=== PATIENT | female | born 1985 | race Two or more races ===

== ENCOUNTER 2024-08-11 07:54 | Emergency (ER) | payer MEDICAID, SELFPAY ==
[2024-08-11 07:55] VITALS: BMI 35.2
[2024-08-11 08:06] VITALS: BP 160/97; PULSE 81; RESP 19; TEMP 37.3; O2SAT 99
--- NOTE | 2024-08-11 08:11 | EDNOTE_ITS ---
ED Wound/Laceration-RME/HPI General Chief Complaint: Wound/Laceration Stated Complaint: INCISION OPENED-HERNIA REPAIR Time Seen by Provider: 08/11/24 08:01 Arrival date/time: 08/11/24 07:54 38-year-old female presents the emergency department today stating that she had a hernia repair 2 months ago patient reports that last night she realized that there was some drainage from the site therefore she came in for further evaluation Limitations: no limitations Related Data Home Medications ?Medication ?Instructions ?Recorded ?Confirmed metformin 1,000 mg tablet 1,000 mg PO BID #0 tabs 08/08/16 06/14/24 (Glucophage) semaglutide 1 mg/dose (4 mg/3 mL) 1 mg subcut QWEEK 06/12/24 06/12/24 subcutaneous pen injector (Ozempic) terbinafine HCl 250 mg tablet 250 mg PO QDAY 06/12/24 06/14/24 Previous Rx's ?Medication ?Instructions ?Recorded docusate sodium 100 mg capsule 100 mg PO BID #60 caps 06/14/24 (Colace) hydrocodone 5 mg-acetaminophen 325 1 tab PO Q6H PRN pain (scale score 06/14/24 mg tablet 7-10) #20 tabs ibuprofen 600 mg tablet 600 mg PO Q8H PRN pain (scale 06/14/24 score 4-6) #15 tabs cephalexin 500 mg capsule 500 mg PO BID 7 days #14 caps 08/11/24 Allergies Allergy/AdvReac Type Severity Reaction Status Date / Time No Known Allergies Allergy Verified 08/11/24 07:57 Review of Systems Review of Systems Systems Reviewed: All systems reviewed, normal except as documented Constitutional Constitutional: Reports system reviewed and no additional complaints, except as documented, Denies fever(s) and Denies headache(s) Eyes Eyes: Reports system reviewed and no additional complaints, except as documented and Denies blurry vision ENT Ears, Nose, Mouth, and Throat: Reports system reviewed and no additional complaints, except as documented, Denies headache(s), Denies nasal congestion and Denies nasal discharge Cardiovascular Cardiovascular: Reports system reviewed and no additional complaints, except as documented, Denies chest pain and Denies dyspnea Respiratory Respiratory: Reports system reviewed and no additional complaints, except as documented, Denies chest congestion, Denies cough and Denies dyspnea Gastrointestinal Gastrointestinal: Reports system reviewed and no additional complaints, except as documented, Denies abdominal pain, Denies nausea and Denies vomiting Integumentary/Breasts Skin/Breast: Reports system reviewed and no additional complaints, except as documented and Denies rash Neurologic Neurologic: Reports system reviewed and no additional complaints, except as documented, Reports as per HPI and Denies headache(s) Past Medical History Past Medical History NEUROLOGIC: Negative Neurological Disorders ED Exam General Limitations: Present no limitations General appearance: Present alert and in no apparent distress Head Head exam: Present atraumatic, normocephalic and normal inspection Eye Eye exam: Present normal appearance, PERRL and EOMI; Absent conjunctival injection ENT ENT exam: Present normal exam, normal oropharynx and mucous membranes moist Neck Neck exam: Present normal inspection, full ROM and trachea midline Chest Chest inspection: Present normal inspection and symmetric chest wall rise Respiratory Respiratory exam: Present normal lung sounds bilaterally; Absent respiratory distress Cardiovascular Cardiovascular exam: Present regular rate, normal rhythm and normal heart sounds Abdominal Exam Abdominal exam: Present soft and normal bowel sounds; Absent distention, tenderness, guarding, rebound, rigidity or tenderness at McBurney's Point Abdominal tenderness: Absent RUQ or RLQ Extremities Exam Extremities exam: Present normal inspection and full ROM Back Exam Back exam: Present normal inspection and full ROM Neurological Exam Neurological exam: Present alert, oriented X3 and CN II-XII intact Psychiatric Psychiatric exam: Present normal affect and normal mood Skin Skin exam: Present warm, dry, intact and normal color Course Quality Measures none Vital Signs Vital signs: Vital Signs Temperature 99.2 F 08/11/24 08:06 Pulse Rate 81 08/11/24 08:06 Respiratory Rate 19 08/11/24 08:06 Blood Pressure 160/97 H 08/11/24 08:06 Pulse Oximetry (%) 99 08/11/24 08:06 Oxygen Delivery Method Room Air 08/11/24 08:06 O2 saturation 99% room air within normal limit Wound / Laceration MDM Narrative MDM Narrative:: 38-year-old female presents the emergency department today stating that she had a hernia repair 2 months ago patient reports that last night she realized that there was some drainage from the site therefore she came in for further evaluation On exam patient well-appearing patient does not appear ill or toxic patient has an incision lower abdomen no active drainage soft nontender no surrounding erythema I do not believe patient has an infection at this time patient appears well reports no fever nausea or vomiting and abdomen is soft and nontender Patient given a course of antibiotics to prevent infection Patient discharged home in no distress to follow-up with primary care doctor in the next 24 to 48 hours and for any worsening symptoms to return to the ER immediately Patient data External records reviewed:: [facility] previous records Clinical information provided by:: patient Social determinants that could affect healthcare access:: none Patient has the following chronic illnesses:: See history How is presenting disease/condition affected by chronic disease/condition?: caused by Evaluation data The following diagnostics were reviewed and interpreted by me:: other (specify) (N/A) Lab and/or radiology exams considered but not ordered:: Considered and not ordered Interpretation Summary: N/A Medications / Prescriptions Medications or Prescriptions considered but not ordered:: Given Medication administrations:: Given Consultations Consultation(s) initiated? (list below): No Diagnosis Wound Differential Diagnosis: laceration, abrasion and avulsion of skin Most likely diagnosis given after review of the tests above:: Wound dehiscence Admission Indicated Admission indicated?: not indicated Admission Request Was there a request for admission?: No Disposition Plan Disposition Plan: Discharge Discharge Attestation Discharge Attestation: The patient and all family members were given an opportunity to ask questions and understood the discharge instructions. Discharge instructions specifically effects, indications for sooner follow up or return to the emergency department, and the expected course of current diagnosis. Patient condition: Stable Discharge Plan Plan Patient Disposition: HOME (Self Care) Disposition Comment: Stable Prescriptions/Referrals Prescriptions/Med Rec: New cephalexin 500 mg capsule 500 mg PO BID 7 Days Qty: 14 0RF No Action metformin [Glucophage] 1,000 MG tablet 1,000 mg PO BID Qty: 0 terbinafine HCl 250 mg Tablet 250 mg PO QDAY Ozempic 1 mg/dose (4 mg/3 mL) pen injector 1 mg SUBCUT QWEEK Patient Comments: INJECT 1 MG UNDER THE SKIN ONCE WEEKLY ON THE SAME DAY OF EACH WEEK IN THE ABDOMEN , THIGHS , OR UPPER ARM ROTATING docusate sodium [Colace] 100 mg capsule 100 mg PO BID Qty: 60 0RF ibuprofen 600 mg tablet 600 mg PO Q8H PRN (Reason: pain (scale score 4-6)) Qty: 15 0RF hydrocodone-acetaminophen 5-325 mg tablet 1 tab PO Q6H MDD 4 PRN (Reason: pain (scale score 7-10)) Qty: 20 0RF Problem List Clinical Impression: Dehiscence of wound Patient/Caregiver Discharge Instructions Additional Instructions: Please follow up with your primary care doctor in the next 24-48hrs for any worsening symptoms return here immediately Print Language: [place] Stand Alone Forms: Kat Award Info., Patient Portal Info Letter PA/[employer] Supervising Physician PA/[employer] Supervising Physician: Dr. gonzalez
== END 2024-08-11 09:16 | disposition home or self-care (01) ==
LOC: SERX 08:17
PROVIDERS: Emergency Provider Emergency Medicine; PCP Family Medicine
DX: T81.31XA Disruption of external operation (surgical) wound, not elsewhere classified, initial encounter (principal); Y83.8 Other surgical procedures as the cause of abnormal reaction of the patient, or of later complication, without mention of misadventure at the time of the procedure
CPT/HCPCS: 99281

== ENCOUNTER 2024-09-22 08:43 | Emergency (ER) | payer MEDICAID, SELFPAY ==
[2024-09-22 08:44] VITALS: BMI 34.4
[2024-09-22 08:49] VITALS: BP 144/89; PULSE 84; RESP 18; TEMP 36.8; O2SAT 97; BMI 34.4
--- NOTE | 2024-09-22 08:57 | XR_ITS ---
Examination: PA lateral chest 2 views Technique: Upright PA lateral chest 2 views Exam date and time: September 22, 2024 0934 hrs. Comparison April 12, 2019 Indications: Coughing beginning 3 weeks ago. Findings: No significant cardiac enlargement Ectatic thoracic aorta. No pneumonia or pulmonary edema Impression: No pneumonia or pulmonary edema
--- NOTE | 2024-09-22 08:58 | EDNOTE_ITS ---
Upper Respiratory Inf. RME/HPI General Chief Complaint: Flu Like Symptoms Stated Complaint: COLD SYMPTOMS X3 WKS Time Seen by Provider: 09/22/24 08:53 Arrival date/time: 09/22/24 08:43 39-year-old female presents to emergency department today complains of URI symptoms ongoing for the last 3 weeks patient reports runny nose, congestion, cough, body aches ear pain and sore throat Limitations: no limitations Related Data Home Medications ?Medication ?Instructions ?Recorded ?Confirmed metformin 1,000 mg tablet 1,000 mg PO BID #0 tabs 07/22/06/14/24 (Glucophage) semaglutide 1 mg/dose (4 mg/3 mL) 1 mg subcut QWEEK 06/12/24 subcutaneous pen injector (Ozempic) terbinafine HCl 250 mg tablet 250 mg PO QDAY 06/12/24 06/14/24 Previous Rx's ?Medication ?Instructions ?Recorded docusate sodium 100 mg capsule 100 mg PO BID #60 caps 06/14/24 (Colace) hydrocodone 5 mg-acetaminophen 325 1 tab PO Q6H PRN pa in (scale score 06/14/24 mg tablet 7-10) #20 tabs ibuprofen 600 mg tablet 600 mg PO Q8H PRN pain (scal e 06/14/24 score 4-6) #15 tabs amoxicillin 875 mg-potassium 1 tab PO BID 7 days #14 t abs 09/22/24 clavulanate 125 mg tablet ibuprofen 800 mg tablet 800 mg PO TID PRN pain #30 t abs 09/22/24 Allergies Allergy/AdvReac Type Severity Reaction Status Date / Time No Known Allergies Allergy Verified 09/22/24 08:46 Review of Systems Review of Systems Systems Reviewed: All systems reviewed, normal except as documented Constitutional Constitutional: Reports system reviewed and no additional complaints, except as documented, Reports body ache(s), Reports chills, Denies fever(s) and Reports headache(s) Eyes Eyes: Reports system reviewed and no additional complaints, except as documented and Denies blurry vision ENT Ears, Nose, Mouth, and Throat: Reports system reviewed and no additional complaints, except as documented, Reports headache(s), Reports nasal congestion and Reports nasal discharge Cardiovascular Cardiovascular: Reports system reviewed and no additional complaints, except as documented, Denies chest pain and Denies dyspnea Respiratory Respiratory: Reports system reviewed and no additional complaints, except as documented, Reports chest congestion, Reports cough and Denies dyspnea Gastrointestinal Gastrointestinal: Reports system reviewed and no additional complaints, except as documented and Denies abdominal pain Integumentary/Breasts Skin/Breast: Reports system reviewed and no additional complaints, except as documented and Denies rash Neurologic Neurologic: Reports system reviewed and no additional complaints, except as documented, Reports as per HPI and Reports headache(s) Past Medical History Past Medical History NEUROLOGIC: Negative Neurological Disorders or Seizures CARDIAC: Positive Cardiac Disorders and Hypertension (Run out of losartan 4 weeks ago); Negative Congestive Heart Failure RESPIRATORY: Negative Chronic Obstructive Pulmonary Disease (COPD) GASTROINTESTINAL: Positive Gastrointestinal Disorders and Obesity; Negative Hepatitis GENITOURINARY: Negative Genitourinary Disorders or Renal Disease REPRODUCTIVE: Positive Previous Pregnancies (x3) MUSCULOSKELETAL: Negative Musculoskeletal Disorders ENDOCRINE: Positive Endocrine Disorders and Diabetes Mellitus Type 2; Negative Diabetes Mellitus Type 1 HEMATOLOGIC: Negative Blood Disorders OTHER HISTORY: Positive Anesthesia Reactions (severe nausea vomiting) and Chic gerald Pox; Negative Hospitalization, Autoimmune Disease, Shingles, Blood Transfusions, Blood Transfusion Reaction or Cancer Family History FAMILY HISTORY: Positive Family Cardiac Disorders and Family Surgery; Negative Family Psychiatric Problems, Family Respiratory Disorders, Family Gastrointestinal Problems, Family Cancer or Family Anesthesia Reaction Surgical History SURGICAL: Positive Tubal Ligation and Section (x2) Social History SMOKING STATUS: Never smoker ED Exam General Limitations: Present no limitations General appearance: Present alert and in no apparent distress Head Head exam: Present atraumatic, normocephalic and normal inspection Eye Eye exam: Present normal appearance, PERRL and EOMI; Absent conjunctival injection ENT ENT exam: Present normal exam, normal oropharynx and mucous membranes moist Neck Neck exam: Present normal inspection, full ROM and trachea midline Chest Chest inspection: Present normal inspection and symmetric chest wall rise Respiratory Respiratory exam: Present normal lung sounds bilaterally; Absent respiratory distress, wheezes, stridor or accessory muscle use Cardiovascular Cardiovascular exam: Present regular rate, normal rhythm and normal heart sounds Abdominal Exam Abdominal exam: Present soft and normal bowel sounds; Absent distention, tenderness, guarding, rebound or rigidity Extremities Exam Extremities exam: Present normal inspection and full ROM Back Exam Back exam: Present normal inspection and full ROM Neurological Exam Neurological exam: Present alert, oriented X3 and CN II-XII intact Psychiatric Psychiatric exam: Present normal affect and normal mood Skin Skin exam: Present warm, dry, intact and normal color Course Quality Measures none Orders Category Date Time Status Bedside COVID-19 Antigen Test NOW Care 09/22/24 08:57 Completed Bedside Influenza A&B Antigen Test NOW Care 09/22/24 08:57 Completed XR chest 2V Stat Exams 09/22/24 08:57 Completed CBC Stat Lab 09/22/24 09:50 Completed CMP [Comprehensive Metabolic Panel] Stat Lab 09/22/24 09:50 Completed Strep A Rapid Stat Lab 09/22/24 09:15 Completed Vital Signs Vital signs: Vital Signs Temperature 98.2 F 09/22/24 08:49 Pulse Rate 84 09/22/24 08:49 Respiratory Rate 18 09/22/24 08:49 Blood Pressure 144/89 H 09/22/24 08:49 Pulse Oximetry (%) 97 09/22/24 08:49 Oxygen Delivery Method Room Air 09/22/24 08:49 O2 saturation 97% room air within normal limits Upper Respiratory Infection MDM Narrative MDM Narrative:: 39-year-old female presents to emergency department today complains of URI symptoms ongoing for the last 3 weeks patient reports runny nose, congestion, cough, body aches ear pain and sore throat On exam patient well-appearing patient does not appear ill or toxic patient hemodynamically stable Lab work and chest x-ray obtained No acute emergent findings noted Symptoms consistent with URI Patient discharged home in no distress to follow-up with primary care doctor in the next 24 to 48 hours and for any worsening symptoms to return to the ER immediately Patient data External records reviewed:: [facility] previous records Clinical information provided by:: patient Social determinants that could affect healthcare access:: none Patient has the following chronic illnesses:: See history How is presenting disease/condition affected by chronic disease/condition?: exacerbated by Evaluation data The following diagnostics were reviewed and interpreted by me:: lab results and radiology exam(s) Lab and/or radiology exams considered but not ordered:: Labs radiology obtained Interpretation Summary: Reviewed by me Medications / Prescriptions Medications or Prescriptions considered but not ordered:: Given Medication administrations:: Given Consultations Consultation(s) initiated? (list below): No Diagnosis Upper Respiratory Differential Diagnosis: upper respiratory infection, sinusitis, viral infection and bronchitis Most likely diagnosis given after review of the tests above:: URI Admission Indicated Admission indicated?: not indicated Admission Request Was there a request for admission?: No Disposition Plan Disposition Plan: Discharge Discharge Attestation Discharge Attestation: The patient and all family members were given an opportunity to ask questions and understood the discharge instructions. Discharge instructions specifically effects, indications for sooner follow up or return to the emergency department, and the expected course of current diagnosis. Patient condition: Stable Discharge Plan Plan Patient Disposition: HOME (Self Care) Disposition Comment: Stable Prescriptions/Referrals Prescriptions/Med Rec: New ibuprofen 800 mg tablet 800 mg PO TID PRN (Reason: pain) Qty: 30 0RF amoxicillin-pot clavulanate 875-125 mg tablet 1 tab PO BID 7 Days Qty: 14 0RF No Action metformin [Glucophage] 1,000 MG tablet 1,000 mg PO BID Qty: 0 terbinafine HCl 250 mg Tablet 250 mg PO QDAY Ozempic 1 mg/dose (4 mg/3 mL) pen injector 1 mg SUBCUT QWEEK Patient Comments: INJECT 1 MG UNDER THE SKIN ONCE WEEKLY ON THE SAME DAY OF EACH WEEK IN THE ABDOMEN , THIGHS , OR UPPER ARM ROTATING docusate sodium [Colace] 100 mg capsule 100 mg PO BID Qty: 60 0RF ibuprofen 600 mg tablet 600 mg PO Q8H PRN (Reason: pain (scale score 4-6)) Qty: 15 0RF hydrocodone-acetaminophen 5-325 mg tablet 1 tab PO Q6H MDD 4 PRN (Reason: pain (scale score 7-10)) Qty: 20 0RF Referrals: Emilia Frias MD [Primary Care Provider] - 09/26/24 Problem List Clinical Impression: Acute sinusitis Patient/Caregiver Discharge Instructions Education Materials: Causes of Sinusitis Additional Instructions: Please follow up with your primary care doctor in the next 24-48hrs for any wo rsening symptoms return here immediately Print Language: Citizen Of [place] Stand Alone Forms: Kat Award Info., Work/School Release, Patient Portal Info Letter NEIL/MATTHEW Supervising Physician NEIL/MATTHEW Supervising Physician: Dr Tirado
[2024-09-22 09:59] LABS: Strep A Rapid Negative (Negative)
[2024-09-22 10:03] LABS: Basophils # (Auto) 0.1 Thou/mm3 (0.0-0.2); Basophils % (Auto) 1 % (0-2.5); Eosinophils # (Auto) 0.4 Thou/mm3 (0.0-0.5); Eosinophils % (Auto) 3 % (0-10); Hematocrit 41.3 % (36.0-46.0); Hemoglobin 13.6 g/dL (12.0-16.0); Immature Granulocytes % (Auto) 1 % (0-0); Immature Granulocytes Auto 0.07 Thou/mm3 (0.00-0.00); Lymphocytes # (Auto) 1.7 Thou/mm3 (1.0-4.8); Lymphocytes % (Auto) 16 % (10-50); Mean Corpuscular HGB Conc 32.9 g/dl (31.0-37.0); Mean Corpuscular Hemoglobin 24.5 pg (25.0-35.0); Mean Corpuscular Volume 75 fL (80-100); Monocytes # (Auto) 0.5 Thou/mm3 (0.0-0.8); Monocytes % (Auto) 5 % (0-12); Neutrophils # (Auto) 8.3 Thou/mm3 (1.8-7.7); Neutrophils % (Auto) 75 % (37-80); Nucleated Red Blood Cell % 0 /100 WBC (0); Platelet Count 371 Thou/mm3 (140-440); RDW Standard Deviation 39.5 fL (36.4-46.3); Red Blood Count 5.54 Miln/mm3 (4.00-5.20); White Blood Count 11.1 Thou/mm3 (3.6-11.0)
[2024-09-22 10:27] LABS: Alanine Aminotransferase 15 U/L (10-49); Albumin, Serum 4.1 gm/dL (3.5-5.0); Albumin/Globulin Ratio 1.5 (1.2-2.2); Alkaline Phosphatase 97 U/L (46-116); Anion Gap 7 (7-16); Aspartate Amino Transferase 10 U/L (0-34); BUN/Creatinine Ratio 16 Ratio (12-20); Bilirubin,Total 0.5 mg/dL (0.3-1.2); Blood Urea Nitrogen 11 mg/dL (9-23); Chloride 102 mMol/L (98-107); Creatinine (Component) 0.7 mg/dL (0.6-1.3); Estimated Creatinine Clearance 128.4 mL/min (>60); Globulin 2.8 gm/dL (2.3-3.5); Glucose 305 mg/dL (74-106); Osmolality,Calculated 282 (275-295); Potassium 4.4 mMol/L (3.4-5.1); Sodium 136 mMol/L (136-145); Total Protein 6.9 gm/dL (5.7-8.2); eGFR > 60 See Note
== END 2024-09-22 10:56 | disposition home or self-care (01) ==
PROVIDERS: Nurse Practitioner Primary Care; Emergency Provider Emergency Medicine; PCP Family Medicine
DX: J01.90 Acute sinusitis, unspecified (principal)
CPT/HCPCS: 36415; 71046; 80053; 85025; 87400; 87651; 87811; 99283

== ENCOUNTER 2025-05-07 02:23 | Emergency (ER) | payer MEDICAID, SELFPAY ==
--- NOTE | 2025-05-07 02:25 | EKG_ITS ---
[facility] Test Date: 2025-05-07 Pat Name: ZURI DOW Department: Room: - Gender: Female [employer]: : 1985 Requested By: ED Temporary Provider Order Number: [id number] Reading MD: ED Temporary Provider Measurements Intervals [place] Rate: 84 P: 28 HI: 158 QRS: 13 QRSD: 115 T: 33 QT: 379 QTc: 449 Interpretive Statements SINUS RHYTHM MODERATE INTRAVENTRICULAR CONDUCTION DELAY [110+ ms QRS DURATION] NONSPECIFIC T-WAVE ABNORMALITY Compared to ECG 06/12/2024 09:06:39 Intraventricular conduction delay now present T-wave abnormality now present /[id number]/[id number]
[2025-05-07 02:26] VITALS: PULSE 88; O2SAT 98
[2025-05-07 02:37] VITALS: BMI 35.2
[2025-05-07 02:47] VITALS: BP 148/89; PULSE 88; RESP 15; TEMP 37; O2SAT 96
--- NOTE | 2025-05-07 02:53 | PD.EDCHEST ---
ED Chest Pain RME/HPI General Chief Complaint: Chest Pain Stated Complaint: CHEST TIGHTNESS Time Seen by Provider: 05/07/25 02:44 Arrival date/time: 05/07/25 02:23 RME / HPI RME / HPI narrative: DR. ADORNO MAIN ED EVALUATION: Patient presents with onset left parasternal chest pain pressure-like sensation x approximately 1 AM of intermittent nature with mild SOB and without pleuritic or exertional component. No nausea, vomiting, fever, or diaphoresis. Reports lightheadedness without near-syncopal episodes. Paramedics administered topical and sublingual Nitro and oral ASA with overall relief en route. Cardiac risk-factor: positive HTN and DM, negative for cholesterol, family history of heart disease. PE: negative for prolonged travel, recent surgery, family or personal hx of HRT or tobacco use. PMH: Positive HTN, DM. Social: nondrinker, nonsmoker, no illicit drug abuse. SH: Noncontributory. Related Data Home Medications ?Medication ?Instructions ?Recorded ?Confirmed metformin 1,000 mg tablet 1,000 mg PO BID #0 tabs 08/08/16 06/14/24 (Glucophage) semaglutide 1 mg/dose (4 mg/3 mL) 1 mg subcut QWEEK 06/12/24 06/12/24 subcutaneous pen injector (Ozempic) terbinafine HCl 250 mg tablet 250 mg PO QDAY 06/12/24 06/14/24 Previous Rx's ?Medication ?Instructions ?Recorded docusate sodium 100 mg capsule 100 mg PO BID #60 caps 06/14/24 (Colace) hydrocodone 5 mg-acetaminophen 325 1 tab PO Q6H PRN pain (scale score 06/14/24 mg tablet 7-10) #20 tabs ibuprofen 600 mg tablet 600 mg PO Q8H PRN pain (scale 06/14/24 score 4-6) #15 tabs ibuprofen 800 mg tablet 800 mg PO TID PRN pain #30 tabs 09/22/24 aspirin 81 mg tablet,delayed 81 mg PO QDAY #30 tabs 05/07/25 release (Ecotrin Low Strength) nitroglycerin 0.4 mg sublingual 0.4 mg buccal [id number] PRN 05/07/25 tablet (Nitrostat) sustained chest pain #25 tabs Allergies Allergy/AdvReac Type Severity Reaction Status Date / Time No Known Allergies Allergy Verified 09/22/24 08:46 Review of Systems Review of Systems Systems Reviewed: All systems reviewed, normal except as documented Past Medical History Past Medical History CARDIAC: Positive Cardiac Disorders and Hypertension GASTROINTESTINAL: Positive Gastrointestinal Disorders and Obesity REPRODUCTIVE: Positive Previous Pregnancies ENDOCRINE: Positive Endocrine Disorders and Diabetes Mellitus Type 2 OTHER HISTORY: Positive Anesthesia Reactions and Chicken Pox Family History FAMILY HISTORY: Positive Family Cardiac Disorders and Family Surgery Surgical History SURGICAL: Positive Tubal Ligation and Section ED Exam Narrative Physical exam: GEN. APPEARANCE: The patient is alert awake oriented X-3 in no distress, lying down comfortably, does not look ill/toxic. Patient has good eye contact. Patient is cooperative. VITALS: All vitals were reviewed and the pulse ox is 95% on room air which is normal according to my interpretation. HEENT: Normocephalic, atraumatic. Pupils are equal and reactive. Oral mucosa is moist. Patent Nares NECK: Supple, nontender, no thyromegaly, no meningismus, no JVD, no step offs CHEST: Symmetrical, atraumatic, and with equal expansion , Chest wall with mild tenderness to palpation to right parasternal region, no step off or crepitus. Patient placed on vehicle monitor technician. CARDIOVASCULAR: Heart regular rhythm no murmur or gallop rub or extra beats. LUNGS: Clear to auscultation bilaterally with symmetrical chest rise. No laboring tachypnea or wheezing. No intercostal subcostal retraction. No rales and no rhonchi. ABDOMEN: Soft, flat, nontender to palpation, no guarding or rebound tenderness. There are no abnormal masses palpated. Active and normal bowel sounds. EXTREMITIES: Nontender. No edema. No cyanosis. Patient is able to move all 4 extremities well, with full ROM and good CSM. SKIN: Warm and dry, no jaundice or rashes noted. MUSCULOSKELETAL: No lubar or midline bony tenderness. There is no CVA tenderness. No paraspinal muscle spasm or tenderness. NEURO: Patient is BALLARD x 4, Cranial nerves II through XII grossly intact. There is no focal neurologic deficits noted. GCS is 15, PNS and [employer]ANT TECHNICIAN appear grossly intact. PSYCHIATRIC: Patient is in normal mood and affect, cooperative, no SI or HI or hallucinations. Course Course Course Narrative: CXR was ordered for determining the etiology of shortness of breath. Quality Measures none Orders Category Date Time Status Dice Spotter STAT Care 05/07/25 02:57 Active Continuous Pulse Oximetry ONCE Care 05/07/25 02:57 Completed EKG (ED ONLY) *Do not use* NOW Care 05/07/25 02:25 Completed EKG (ED ONLY) *Do not use* NOW Care 05/07/25 02:57 Completed EKG (ED ONLY) *Do not use* NOW Care 05/07/25 05:12 Active EKG (ED Only) Stat Exams 05/07/25 02:25 Draft EKG (ED Only) Stat Exams 05/07/25 02:57 Draft EKG (ED Only) Stat Exams 05/07/25 05:12 Ordered XR chest 1V portable Stat Exams 05/07/25 02:57 Taken B-Type Natriuretic Peptide Stat Lab 05/07/25 03:19 Completed CBC Stat Lab 05/07/25 03:19 Completed Comprehensive Metabolic Panel Stat Lab 05/07/25 03:19 Completed HCG Qualitative,Urine Stat Lab 05/07/25 03:25 Completed HCG Titer if Positive Stat Lab 05/07/25 03:19 Completed Magnesium Stat Lab 05/07/25 03:19 Completed Troponin I Stat Lab 05/07/25 03:19 Completed Troponin I Stat Lab 05/07/25 04:51 Ordered Morphine* Inj Med 05/07/25 02:59 Discontinued 4 mg IVP X1 ONE Ondansetron Inj [Zofran Inj] Med 05/07/25 02:57 Active 4 mg IVP Q1HR PRN Oxygen Delivery NOW RT 05/07/25 02:57 Active Vital Signs Vital signs: Vital Signs Temperature 98.6 F 05/07/25 02:47 Pulse Rate 88 05/07/25 02:47 Respiratory Rate 15 05/07/25 02:47 Blood Pressure 148/89 H 05/07/25 02:47 Pulse Oximetry (%) 96 05/07/25 02:47 Oxygen Delivery Method Room Air 05/07/25 02:47 Chest Pain MDM Narrative MDM Narrative:: Scribe Attestation: IMary Ellen, am scribing for and in the presence of Dr. Adonro. Provider Notation: Although this document has been carefully reviewed, there may still be some phonetic and other typographical errors. These errors are purely grammatical due to imperfections in the software program and should not be construed in any way to compromise the substance of the patient's medical care during this visit. Patient presents with onset left parasternal chest pain pressure-like sensation x approximately 1 AM of intermittent nature with mild SOB and without pleuritic or exertional component. No nausea, vomiting, fever, or diaphoresis. Please see PE findings. Laboratory markers including CBC and serum chemistries were essentially unremarkable. Initial Troponin I was undetected and UA without evidence of infection. Patient placed on vehicle monitor technician and underwent basic cardiac workup. EKG and cardiac enzymes without signs of infarction, ischemia, or carditis. Low-dose IV narcotic analgesics and anti-emetics after receiving Nitroglycerin in the field with improvement. Currently pending F/U cardiac enzymes and EKG. And if unremarkable, will discharge to home on daily baby aspirin, SL NTG for sustain chest pain and outpatient referral for stress test. Patient data External records reviewed:: [facility] previous records (Reviewed prior ED records from 09/22/24. Patient was seen for Acute sinusitis.) and EMS form Clinical information provided by:: patient and EMS Social determinants that could affect healthcare access:: none Patient has the following chronic illnesses:: HTN, DM How is presenting disease/condition affected by chronic disease/condition?: exacerbated by Evaluation data The following diagnostics were reviewed and interpreted by me:: EKG tracing(s) (EKG at 0239 shows normal sinus rhythm at 84, no acute ST segment changes, no ventricular ectopy, axis leftward, ? LVH by voltage criteria, per my interpretation.) Lab and/or radiology exams considered but not ordered:: None Interpretation Summary: RADIOLOGY Chest X-Ray: Pending official radiology report. Medications / Prescriptions Medications or Prescriptions considered but not ordered:: None Medication administrations:: Medication Administration History Ondansetron HCl (Ondansetron Inj 2 Mg/Ml Inj 2 Ml) 4 mg IVP Q1HR PRN PRN Reason: PERSISTENT NAUSEA OR VOMITING Discontinued Medications Morphine Sulfate (Morphine Sulf Inj 4 Mg/Ml Vial) 4 mg IVP X1 ONE Stop: 05/07/25 03:00 See above if any Consultations Consultation(s) initiated? (list below): No Diagnosis Chest Pain Differential Diagnosis: stable angina, unstable angina pectoris, atypical chest pain, st elevation myocardial infarction, costochondritis, chest pain and biliary colic Most likely diagnosis given after review of the tests above:: Non-specific chest pain. Admission Indicated Admission indicated?: not indicated Explain why admission is indicated or not indicated:: Patient does not meet admission criteria. Admission Request Was there a request for admission?: No Disposition Plan Disposition Plan: Discharge Discharge Attestation Discharge Attestation: The patient and all family members were given an opportunity to ask questions and understood the discharge instructions. Discharge instructions specifically effects, indications for sooner follow up or return to the emergency department, and the expected course of current diagnosis. Patient condition: Stable Discharge Plan Plan Patient Disposition: HOME (Self Care) Prescriptions/Referrals Prescriptions/Med Rec: New aspirin [Ecotrin Low Strength] 81 mg tablet,delayed release (DR/EC) 81 mg PO QDAY Qty: 30 0RF nitroglycerin [Nitrostat] 0.4 mg tablet, sublingual 0.4 mg buccal [id number] PRN (Reason: sustained chest pain) Qty: 25 0RF No Action metformin [Glucophage] 1,000 MG tablet 1,000 mg PO BID Qty: 0 terbinafine HCl 250 mg Tablet 250 mg PO QDAY Ozempic 1 mg/dose (4 mg/3 mL) pen injector 1 mg SUBCUT QWEEK Patient Comments: INJECT 1 MG UNDER THE SKIN ONCE WEEKLY ON THE SAME DAY OF EACH WEEK IN THE ABDOMEN , THIGHS , OR UPPER ARM ROTATING docusate sodium [Colace] 100 mg capsule 100 mg PO BID Qty: 60 0RF ibuprofen 600 mg tablet 600 mg PO Q8H PRN (Reason: pain (scale score 4-6)) Qty: 15 0RF hydrocodone-acetaminophen 5-325 mg tablet 1 tab PO Q6H MDD 4 PRN (Reason: pain (scale score 7-10)) Qty: 20 0RF ibuprofen 800 mg tablet 800 mg PO TID PRN (Reason: pain) Qty: 30 0RF Referrals: No Primary/Family,Physician [Primary Care Provider] - In 1 week Problem List Clinical Impression: Nonspecific chest pain Patient/Caregiver Discharge Instructions Discharge Activity: activity as tolerated Diet Instructions: Low-salt diet Education Materials: ED Chest Pain, Uncertain Cause Additional Instructions: Daily aspirin and sublingual nitro for sustained chest pain. Patient instructed to follow-up with her primary care doctor for arrangements for outpatient stress testing. Precaution instructions issued. Print Language: Mongolian Stand Alone Forms: Kat Award Info., Patient Portal Info Letter
--- NOTE | 2025-05-07 02:57 | EKG_ITS ---
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
--- NOTE | 2025-05-07 02:57 | XR_ITS ---
Examination: AP chest single view Technique one AP portable upright chest single view Date and time: May 07, 2025, 0320 hrs., Comparison September 22, 2024 Indications: Chest pain today. Findings: Normal heart size The upper mediastinum is prominent No pulmonary edema The osseous structures are intact Impression: Abnormal widening the mediastinum Recommend CT chest post intravenous contrast follow-up to exclude mediastinal lymphadenopathy
[2025-05-07 03:14] VITALS: PULSE 88
[2025-05-07 03:15] VITALS: RESP 98
[2025-05-07 03:37] LABS: Basophils # (Auto) 0.1 Thou/mm3 (0.0-0.2); Basophils % (Auto) 1 % (0-2.5); Eosinophils # (Auto) 0.5 Thou/mm3 (0.0-0.5); Eosinophils % (Auto) 5 % (0-10); Hematocrit 36.0 % (36.0-46.0); Hemoglobin 11.9 g/dL (12.0-16.0); Immature Granulocytes Auto 0.03 Thou/mm3 (0.00-0.00); Lymphocytes # (Auto) 1.8 Thou/mm3 (1.0-4.8); Lymphocytes % (Auto) 20 % (10-50); Mean Corpuscular HGB Conc 33.1 g/dl (31.0-37.0); Mean Corpuscular Hemoglobin 25.7 pg (25.0-35.0); Mean Corpuscular Volume 78 fL (80-100); Monocytes # (Auto) 0.6 Thou/mm3 (0.0-0.8); Monocytes % (Auto) 6 % (0-12); Neutrophils # (Auto) 6.2 Thou/mm3 (1.8-7.7); Neutrophils % (Auto) 68 % (37-80); Nucleated Red Blood Cell # 0.00 Thou/mm3 (0.00-0.00); Nucleated Red Blood Cell % 0 /100 WBC (0); Platelet Count 334 Thou/mm3 (140-440); RDW Standard Deviation 39.7 fL (36.4-46.3); Red Blood Count 4.63 Miln/mm3 (4.00-5.20); White Blood Count 9.2 Thou/mm3 (3.6-11.0)
[2025-05-07 03:42] LABS: HCG Qualitative,Urine Negative
[2025-05-07 03:53] LABS: B-Type Natriuretic Peptide < 20 pg/mL (0-100); HCG Titer if Positive Negative
[2025-05-07 03:56] LABS: Alanine Aminotransferase 14 U/L (10-49); Albumin, Serum 3.9 gm/dL (3.5-5.0); Albumin/Globulin Ratio 1.6 (1.2-2.2); Alkaline Phosphatase 71 U/L (46-116); Anion Gap 10 (7-16); Aspartate Amino Transferase 14 U/L (0-34); BUN/Creatinine Ratio 17 Ratio (12-20); Bilirubin,Total 0.3 mg/dL (0.3-1.2); Blood Urea Nitrogen 12 mg/dL (9-23); Calcium 8.8 mg/dL (8.3-10.6); Calcium (Corrected) 8.9 mg/dL (8.5-10.1); Carbon Dioxide 25.4 mMol/L (20.0-31.0); Chloride 104 mMol/L (98-107); Creatinine (Component) 0.7 mg/dL (0.6-1.3); Estimated Creatinine Clearance 129.9 mL/min (>60); Globulin 2.5 gm/dL (2.3-3.5); Glucose 171 mg/dL (74-106); Magnesium 1.9 mg/dL (1.6-2.6); Osmolality,Calculated 281 (275-295); Potassium 3.6 mMol/L (3.4-5.1); Sodium 139 mMol/L (136-145); Total Protein 6.4 gm/dL (5.7-8.2); Troponin I < 0.020 ng/mL (0.0-0.045); eGFR > 60 See Note
[2025-05-07 04:30] VITALS: BP 147/87; PULSE 85; RESP 17; TEMP 36.9; O2SAT 95
[2025-05-07 06:03] LABS: Troponin I < 0.020 ng/mL (0.0-0.045)
[2025-05-07] MEDS: ACETAMINOPHEN 500 MG TABLET 1000 MG PO (06:24)
[2025-05-07 06:35] VITALS: BP 139/93; PULSE 87; RESP 18; TEMP 36.3; O2SAT 97
== END 2025-05-07 06:35 | disposition home or self-care (01) ==
PROVIDERS: Emergency Provider Emergency Medicine
DX: I10 Essential (primary) hypertension (principal); I49.8 Other specified cardiac arrhythmias; I45.89 Other specified conduction disorders
CPT/HCPCS: 36415; 71045; 80053; 81025; 83735; 83880; 84484; 84703; 85025; 93005; 99284; A9270

== ENCOUNTER 2025-06-11 18:09 | Emergency (ER) | payer MEDICAID, SELFPAY ==
[2025-06-11 18:10] VITALS: BMI 35.2
[2025-06-11 19:02] VITALS: BP 150/89; PULSE 83; RESP 16; TEMP 36.8; O2SAT 98
--- NOTE | 2025-06-11 19:17 | PD.EDHIP ---
Lower Extremity Injury RME/HPI General Chief Complaint: Hip Injury/Pain Stated Complaint: RT HIP AND LEG PAIN Time Seen by Provider: 06/11/25 19:13 Arrival date/time: 06/11/25 18:09 39F with history of HTN and DM presents to ED with 1.5 years of intermittent R lower back pain that radiates down RLE. Pain got worse in the past 2 days. Patient denies fall/trauma and has never had leg swelling, redness. Patient has done PT outpatient w/o improvement. She has outpatient CT scheduled. Limitations: no limitations Related Data Home Medications ?Medication ?Instructions ?Recorded ?Confirmed metformin 1,000 mg tablet 1,000 mg PO BID #0 tabs 08/08/16 06/14/24 (Glucophage) semaglutide 1 mg/dose (4 mg/3 mL) 1 mg subcut QWEEK 06/12/24 06/12/24 subcutaneous pen injector (Ozempic) terbinafine HCl 250 mg tablet 250 mg PO QDAY 06/12/24 06/14/24 Previous Rx's ?Medication ?Instructions ?Recorded docusate sodium 100 mg capsule 100 mg PO BID #60 caps 06/14/24 (Colace) hydrocodone 5 mg-acetaminophen 325 1 tab PO Q6H PRN pain (scale score 06/14/24 mg tablet 7-10) #20 tabs ibuprofen 600 mg tablet 600 mg PO Q8H PRN pain (scale 06/14/24 score 4-6) #15 tabs ibuprofen 800 mg tablet 800 mg PO TID PRN pain #30 tabs 09/22/24 aspirin 81 mg tablet,delayed 81 mg PO QDAY #30 tabs 05/07/25 release (Ecotrin Low Strength) nitroglycerin 0.4 mg sublingual 0.4 mg buccal [id number] PRN 05/07/25 tablet (Nitrostat) sustained chest pain #25 tabs Allergies Allergy/AdvReac Type Severity Reaction Status Date / Time No Known Allergies Allergy Verified 06/11/25 18:12 Review of Systems Review of Systems Systems Reviewed: All systems reviewed, normal except as documented Musculoskeletal Musculoskeletal: Reports as per HPI, Reports back pain and Reports radiating pain into limb Past Medical History Past Medical History NEUROLOGIC: Negative Neurological Disorders or Seizures CARDIAC: Positive Cardiac Disorders and Hypertension; Negative Congestive Heart Failure RESPIRATORY: Negative Chronic Obstructive Pulmonary Disease (COPD) GASTROINTESTINAL: Positive Gastrointestinal Disorders and Obesity; Negative Hepatitis GENITOURINARY: Negative Genitourinary Disorders or Renal Disease REPRODUCTIVE: Positive Previous Pregnancies MUSCULOSKELETAL: Negative Musculoskeletal Disorders ENDOCRINE: Positive Endocrine Disorders and Diabetes Mellitus Type 2; Negative Diabetes Mellitus Type 1 HEMATOLOGIC: Negative Blood Disorders OTHER HISTORY: Positive Anesthesia Reactions and Chicken Pox; Negative Hospitalization, Autoimmune Disease, Shingles, Blood Transfusions, Blood Transfusion Reaction or Cancer Family History FAMILY HISTORY: Positive Family Cardiac Disorders and Family Surgery; Negative Family Psychiatric Problems, Family Respiratory Disorders, Family Gastrointestinal Problems, Family Cancer or Family Anesthesia Reaction Surgical History SURGICAL: Positive Tubal Ligation and Section Social History SMOKING STATUS: Never smoker ED Exam General Limitations: Present no limitations General appearance: Present alert and in no apparent distress Head Head exam: Present atraumatic Neck Neck exam: Present normal inspection, full ROM and trachea midline Chest Chest inspection: Present normal inspection and symmetric chest wall rise Extremities Exam Extremities exam: Present normal inspection and full ROM Neurological Exam Neurological exam: Present alert and oriented X3 Psychiatric Psychiatric exam: Present normal affect and normal mood Skin Skin exam: Present warm, dry, intact and normal color Course Quality Measures none Orders Category Date Time Status Naproxen [Naprosyn] Med 06/11/25 19:13 Discontinued 500 mg PO X1 ONE Vital Signs Vital signs: Vital Signs Temperature 98.3 F 06/11/25 19:02 Pulse Rate 83 06/11/25 19:02 Respiratory Rate 16 06/11/25 19:02 Blood Pressure 150/89 H 06/11/25 19:02 Pulse Oximetry (%) 98 06/11/25 19:02 Oxygen Delivery Method Room Air 06/11/25 19:02 O2 at 98% on RA and WNLs Extremity Injury, Lower MDM Narrative MDM Narrative:: 39F with history of HTN and DM presents to ED with 1.5 years of intermittent R lower back pain that radiates down RLE. Pain got worse in the past 2 days. Patient denies fall/trauma and has never had leg swelling, redness. Patient has done PT outpatient w/o improvement. She has outpatient CT scheduled. Physical exam reveals unremarkable RLE. Gait intact. Patient is afebrile, calm, and alert. Through shared decision-making, no CT due to recommendation MRI would be more beneficial/helpful and CT has a lot of radiation. Also, patient doesn't want to wait for CT here. Patient data External records reviewed:: [facility] previous records Clinical information provided by:: patient Social determinants that could affect healthcare access:: none Patient has the following chronic illnesses:: DM and HTN How is presenting disease/condition affected by chronic disease/condition?: exacerbated by Evaluation data The following diagnostics were reviewed and interpreted by me:: other (specify) (none) Lab and/or radiology exams considered but not ordered:: not ordered Interpretation Summary: n/a Medications / Prescriptions Medications or Prescriptions considered but not ordered:: ordered Medication administrations:: Medication Administration History Discontinued Medications Naproxen (Naproxen 250 Mg Tablet) 500 mg PO X1 ONE Stop: 06/11/25 19:14 above Consultations Consultation(s) initiated? (list below): No Diagnosis Extremity Injury, Lower Differential Diagnosis: ankle sprain and strain, acute internal derangement of knee, fracture of femur, fracture of hip, puncture wound of foot, fracture of toe, ankle fracture and other (sciatica) Most likely diagnosis given after review of the tests above:: sciatica Admission Indicated Admission indicated?: not indicated Admission Request Was there a request for admission?: No Disposition Plan Disposition Plan: Discharge Discharge Attestation Discharge Attestation: The patient and all family members were given an opportunity to ask questions and understood the discharge instructions. Discharge instructions specifically effects, indications for sooner follow up or return to the emergency department, and the expected course of current diagnosis. Patient condition: Stable Discharge Plan Plan Patient Disposition: HOME (Self Care) Discharge Disposition comment: Stable Prescriptions/Referrals Prescriptions/Med Rec: No Action metformin [Glucophage] 1,000 MG tablet 1,000 mg PO BID Qty: 0 terbinafine HCl 250 mg Tablet 250 mg PO QDAY Ozempic 1 mg/dose (4 mg/3 mL) pen injector 1 mg SUBCUT QWEEK Patient Comments: INJECT 1 MG UNDER THE SKIN ONCE WEEKLY ON THE SAME DAY OF EACH WEEK IN THE ABDOMEN , THIGHS , OR UPPER ARM ROTATING docusate sodium [Colace] 100 mg capsule 100 mg PO BID Qty: 60 0RF ibuprofen 600 mg tablet 600 mg PO Q8H PRN (Reason: pain (scale score 4-6)) Qty: 15 0RF hydrocodone-acetaminophen 5-325 mg tablet 1 tab PO Q6H MDD 4 PRN (Reason: pain (scale score 7-10)) Qty: 20 0RF ibuprofen 800 mg tablet 800 mg PO TID PRN (Reason: pain) Qty: 30 0RF aspirin [Ecotrin Low Strength] 81 mg tablet,delayed release (DR/EC) 81 mg PO QDAY Qty: 30 0RF nitroglycerin [Nitrostat] 0.4 mg tablet, sublingual 0.4 mg buccal [id number] PRN (Reason: sustained chest pain) Qty: 25 0RF Problem List Clinical Impression: Sciatica Patient/Caregiver Discharge Instructions Education Materials: Understanding Lumbar Radiculopathy, ED Sciatica Additional Instructions: Please follow-up with PCP within 24-48 hours and return immediately if symptoms worsen. If problem persists, recommend outpatient PT and/or MRI (back and R hip) follow-up. In the meantime, rest, use ice/heat, and/or compression. Print Language: Chilean Stand Alone Forms: Patient Portal Info Letter PA/JAVA DEVELOPER ARCHITECT Supervising Physician PA/JAVA DEVELOPER ARCHITECT Supervising Physician: Dr. Mojica
[2025-06-11] MEDS: NAPROXEN 250 MG TABLET 500 MG PO (19:18)
== END 2025-06-11 23:51 | disposition home or self-care (01) ==
LOC: SERX 19:25
PROVIDERS: Emergency Provider Emergency Medicine; PCP Family Medicine
DX: M54.16 Radiculopathy, lumbar region (principal); E11.9 Type 2 diabetes mellitus without complications; I10 Essential (primary) hypertension; Z79.84 Long term (current) use of oral hypoglycemic drugs
CPT/HCPCS: 99281; A9270

== ENCOUNTER 2025-06-27 09:08 | Emergency (ER) | payer MEDICAID, SELFPAY ==
[2025-06-27 09:09] VITALS: BMI 35.2
[2025-06-27 09:15] VITALS: BP 130/83; PULSE 88; RESP 19; TEMP 36.8; O2SAT 96
--- NOTE | 2025-06-27 09:29 | XR_ITS ---
Examination: CT lumbar spine, without contrast. 2-D sagittal reconstructions. 2-D coronal reconstructions. 3-D reconstructions. Date and time of exam: 06/27/2025, 9:37 a.m. INDICATION: Intermittent low back pain for 2 months COMPARISON: CT abdomen pelvis 08/05/2023 CTDI: vol (mGy): 34.6 DLP: (mGycm): 1181 Technique: Multiple 1.25 mm axial sections of the lumbar spine have been obtained. 2-D sagittal and coronal reconstructions have been obtained. 3-D reconstructions have been obtained. Low dose protocols were performed. One or more of the following dose reduction techniques were used; automated exposure control, adjustment of the mA and/or KV according to patient size, use of iterative reconstruction technique. Findings: No evidence for acute fracture, traumatic listhesis, significant disc space narrowing or large disc herniation. Intact lumbar lordosis. No scoliosis. No aggressive bone lesions. L5-S1: Grossly similar very small posterior disc protrusion and redemonstration of mild bilateral facet arthropathy. No central canal neural foraminal stenosis. L4-L5: Trace grade 1 anterolisthesis of L4 over L5 is now seen with associated severe bilateral facet arthropathy that is mildly worse compared to the prior CT. Vacuum cleft phenomena noted at the bilateral facet joints along with subchondral cystic changes. Very mild broad posterior disc protrusion is present. Congenitally short pedicles and mild thickening of the ligamentum flavum is also seen. Combination of findings results in mild to moderate acquired central canal stenosis mild biforaminal stenosis. L3-L4: Minimal facet arthropathy. Slight posterior disc protrusion, more so at the lower ventral portions of the neural foramina at no significant acquired central canal or neural foraminal stenosis. L2-L3, L1-L2 and T12-L1: Unremarkable. Sacroiliac joints: Bilateral osteoarthrosis with subchondral sclerosis, right side greater than left, and vacuum cleft phenomena bilaterally. No erosions or ankylosis. Grossly similar compared to prior study. No paraspinous/retroperitoneal hematoma or other fluid collection. No lymphadenopathy or other mass. IMPRESSION: Negative lumbar spine CT for acute fracture, traumatic listhesis large disc herniation or high-grade central canal or neural foraminal stenosis. Lumbar spondylosis is reidentified, most pronounced at L4-5 where there is severe bilateral facet arthropathy that appears mildly progressive compared to the CT of 08/05/2023. Redemonstration of bilateral sacroiliac joint osteoarthrosis.
--- NOTE | 2025-06-27 10:03 | EDNOTE_ITS ---
ED Back Injury Pain RME/HPI General Chief Complaint: Back Pain/Injury Stated Complaint: POST LEFT LEG PAIN/WEKNESS FOR 4 MONTHS Time Seen by Provider: 06/27/25 09:28 Arrival date/time: 06/27/25 09:08 39-year-old female presents to the emergency department for complaints of acute on chronic back pain patient reports symptoms of going on for months patient reports no fever nausea or vomiting no saddle anesthesia no loss of bowel or bladder patient reports that in the lower back radiates down the left leg Limitations: no limitations Related Data Home Medications ?Medication ?Instructions ?Recorded ?Confirmed metformin 1,000 mg tablet 1,000 mg PO BID #0 tabs 07/22 8/06/14/24 (Glucophage) semaglutide 1 mg/dose (4 mg/3 mL) 1 mg subcut QWEEK 06/12/24 subcutaneous pen injector (Ozempic) terbinafine HCl 250 mg tablet 250 mg PO QDAY 06/12/24 06/14/24 Previous Rx's ?Medication ?Instructions ?Recorded docusate sodium 100 mg capsule 100 mg PO BID #60 caps 06/14/24 (Colace) hydrocodone 5 mg-acetaminophen 325 1 tab PO Q6H PRN pa in (scale score 06/14/24 mg tablet 7-10) #20 tabs ibuprofen 600 mg tablet 600 mg PO Q8H PRN pain (scal e 06/14/24 score 4-6) #15 tabs ibuprofen 800 mg tablet 800 mg PO TID PRN pain #30 t abs 09/22/24 aspirin 81 mg tablet,delayed 81 mg PO QDAY #30 tabs release (Ecotrin Low Strength) nitroglycerin 0.4 mg sublingual 0.4 mg buccal [id number] PRN 05/07/25 tablet (Nitrostat) sustained chest pain #25 tab s cyclobenzaprine 10 mg tablet 10 mg PO TID PRN muscle s pasm 10 06/27/25 days #30 tab-caps hydrocodone 5 mg-acetaminophen 325 1 tab PO BID PRN pa in #10 tabs 06/27/25 mg tablet ibuprofen 800 mg tablet 800 mg PO TID PRN pain #30 t abs 06/27/25 Allergies Allergy/AdvReac Type Severity Reaction Status Date / Time Latex, Natural Rubber Allergy Severe Hives Verified 06/27/25 09:12 Review of Systems Review of Systems Systems Reviewed: All systems reviewed, normal except as documented Constitutional Constitutional: Reports system reviewed and no additional complaints, except as documented, Denies fever(s) and Denies headache(s) Eyes Eyes: Reports system reviewed and no additional complaints, except as documented and Denies blurry vision ENT Ears, Nose, Mouth, and Throat: Reports system reviewed and no additional complaints, except as documented, Denies headache(s), Denies nasal congestion and Denies nasal discharge Cardiovascular Cardiovascular: Reports system reviewed and no additional complaints, except as documented, Denies chest pain and Denies dyspnea Respiratory Respiratory: Reports system reviewed and no additional complaints, except as documented, Denies chest congestion, Denies cough and Denies dyspnea Gastrointestinal Gastrointestinal: Reports system reviewed and no additional complaints, except as documented and Denies abdominal pain Musculoskeletal Musculoskeletal: Reports system reviewed and no additional complaints, except as documented, Reports back pain and Denies deformity Integumentary/Breasts Skin/Breast: Reports system reviewed and no additional complaints, except as documented and Denies rash Neurologic Neurologic: Reports system reviewed and no additional complaints, except as documented, Reports as per HPI and Denies headache(s) Past Medical History Past Medical History NEUROLOGIC: Negative Neurological Disorders or Seizures CARDIAC: Positive Cardiac Disorders and Hypertension; Negative Congestive Heart Failure RESPIRATORY: Negative Chronic Obstructive Pulmonary Disease (COPD) GASTROINTESTINAL: Positive Gastrointestinal Disorders and Obesity; Negative Hepatitis GENITOURINARY: Negative Genitourinary Disorders or Renal Disease REPRODUCTIVE: Positive Previous Pregnancies MUSCULOSKELETAL: Negative Musculoskeletal Disorders ENDOCRINE: Positive Endocrine Disorders and Diabetes Mellitus Type 2; Negative Diabetes Mellitus Type 1 HEMATOLOGIC: Negative Blood Disorders OTHER HISTORY: Positive Anesthesia Reactions and Chicken Pox; Negative Hospitalization, Autoimmune Disease, Shingles, Blood Transfusions, Blood Transfusion Reaction or Cancer Family History FAMILY HISTORY: Positive Family Cardiac Disorders and Family Surgery; Negative Family Psychiatric Problems, Family Respiratory Disorders, Family Gastrointestinal Problems, Family Cancer or Family Anesthesia Reaction Surgical History SURGICAL: Positive Tubal Ligation and Section Social History SMOKING STATUS: Never smoker ED Exam General Limitations: Present no limitations General appearance: Present alert and in no apparent distress Head Head exam: Present atraumatic and normocephalic Eye Eye exam: Present normal appearance, PERRL and EOMI; Absent conjunctival injection ENT ENT exam: Present normal exam, normal oropharynx and mucous membranes moist Neck Neck exam: Present normal inspection, full ROM and trachea midline Chest Chest inspection: Present normal inspection and symmetric chest wall rise Respiratory Respiratory exam: Present normal lung sounds bilaterally Cardiovascular Cardiovascular exam: Present regular rate, normal rhythm and normal heart sounds Abdominal Exam Abdominal exam: Present soft and normal bowel sounds Extremities Exam Extremities exam: Present normal inspection and full ROM Back Exam Back exam: Present normal inspection and full ROM Back 1 view image: 2 1. Lower back pain radiating down left leg Neurological Exam Neurological exam: Present alert, oriented X3 and CN II-XII intact Psychiatric Psychiatric exam: Present normal affect and normal mood Skin Skin exam: Present warm, dry, intact and normal color Course Quality Measures none Orders Category Date Time Status CT lumbar spine wo con Stat Exams 06/27/25 09:29 Completed Ketorolac Inj [Toradol Inj] Med 06/27/25 10:06 Discontinued 30 mg IM X1 ONE Vital Signs Vital signs: Vital Signs Temperature 98.3 F 06/27/25 09:15 Pulse Rate 88 06/27/25 09:15 Respiratory Rate 19 06/27/25 09:15 Blood Pressure 130/83 06/27/25 09:15 Pulse Oximetry (%) 96 06/27/25 09:15 Oxygen Delivery Method Room Air 06/27/25 09:15 O2 saturation 96% room air within normal limit Back Pain / Injury MDM Narrative MDM Narrative:: 39-year-old female presents to the emergency department for complaints of acute on chronic back pain patient reports symptoms of going on for months patient reports no fever nausea or vomiting no saddle anesthesia no loss of bowel or bladder patient reports that in the lower back radiates down the left leg Imaging obtained and reviewed by me Patient given pain medication here and discharged with pain medication Explained to patient she needs to follow-up with primary care doctor for her chronic back pain and request MRI For emergent concerns patient instructed to return for reevaluation Patient data External records reviewed:: [facility] previous records Clinical information provided by:: patient Social determinants that could affect healthcare access:: none Patient has the following chronic illnesses:: None How is presenting disease/condition affected by chronic disease/condition?: no chronic disease Evaluation data The following diagnostics were reviewed and interpreted by me:: radiology exam(s) Lab and/or radiology exams considered but not ordered:: Radiology obtained Interpretation Summary: Reviewed by me Medications / Prescriptions Medications or Prescriptions considered but not ordered:: Given Medication administrations:: Medication Administration History Discontinued Medications Ketorolac Tromethamine (Ketorolac Inj 30 Mg/Ml Vial) 30 mg IM X1 ONE Stop: 06/27/25 10:07 Last Admin: 06/27/25 10:18 Dose: 30 mg Documented By: Given Consultations Consultation(s) initiated? (list below): No Diagnosis Differential diagnosis back pain/injury: lumbar radiculopathy, sciatica and strain of lumbar region Most likely diagnosis given after review of the tests above:: Back pain Admission Indicated Admission indicated?: not indicated Admission Request Was there a request for admission?: No Disposition Plan Disposition Plan: Discharge Discharge Attestation Discharge Attestation: The patient and all family members were given an opportunity to ask questions and understood the discharge instructions. Discharge instructions specifically effects, indications for sooner follow up or return to the emergency department, and the expected course of current diagnosis. Patient condition: Stable Discharge Plan Plan Patient Disposition: HOME (Self Care) Discharge Disposition comment: Stable Prescriptions/Referrals Prescriptions/Med Rec: New cyclobenzaprine 10 mg tablet 10 mg PO TID PRN (Reason: muscle spasm) 10 Days Qty: 30 0RF ibuprofen 800 mg tablet 800 mg PO TID PRN (Reason: pain) Qty: 30 0RF hydrocodone-acetaminophen 5-325 mg tablet 1 tab PO BID MDD 10 PRN (Reason: pain) Qty: 10 0RF No Action metformin [Glucophage] 1,000 MG tablet 1,000 mg PO BID Qty: 0 terbinafine HCl 250 mg Tablet 250 mg PO QDAY Ozempic 1 mg/dose (4 mg/3 mL) pen injector 1 mg SUBCUT QWEEK Patient Comments: INJECT 1 MG UNDER THE SKIN ONCE WEEKLY ON THE SAME DAY OF EACH WEEK IN THE ABDOMEN , THIGHS , OR UPPER ARM ROTATING docusate sodium [Colace] 100 mg capsule 100 mg PO BID Qty: 60 0RF ibuprofen 600 mg tablet 600 mg PO Q8H PRN (Reason: pain (scale score 4-6)) Qty: 15 0RF hydrocodone-acetaminophen 5-325 mg tablet 1 tab PO Q6H MDD 4 PRN (Reason: pain (scale score 7-10)) Qty: 20 0RF ibuprofen 800 mg tablet 800 mg PO TID PRN (Reason: pain) Qty: 30 0RF aspirin [Ecotrin Low Strength] 81 mg tablet,delayed release (DR/EC) 81 mg PO QDAY Qty: 30 0RF nitroglycerin [Nitrostat] 0.4 mg tablet, sublingual 0.4 mg buccal [id number] PRN (Reason: sustained chest pain) Qty: 25 0RF Referrals: Emilia Frias MD [Primary Care Provider] - In 1 week Problem List Clinical Impression: Back pain, Spondylosis Patient/Caregiver Discharge Instructions Education Materials: Anatomy of a Normal Spine Additional Instructions: Please follow up with your primary care doctor in the next 24-48hrs for any worsening symptoms return here immediately Please request MRI from your PCP Print Language: Portuguese Stand Alone Forms: Kat Award Info., Patient Portal Info Letter PA/SHAREPOINT CONSULTANT Supervising Physician PA/SHAREPOINT CONSULTANT Supervising Physician: Dr. patel
[2025-06-27] MEDS: KETOROLAC INJ 30 MG/ML VIAL IM (10:18)
== END 2025-06-27 10:32 | disposition home or self-care (01) ==
PROVIDERS: Emergency Provider Nurse Practitioner Primary Care; PCP Family Medicine
DX: M54.9 Dorsalgia, unspecified (principal)
CPT/HCPCS: 72131; 96372; 99283; J1885